=== PATIENT | female | born 1945 | race Caucasian/White ===

== ENCOUNTER 2019-09-13 14:13 | Emergency (ER) | payer MEDICARE ==
[~2019-09-13] VITALS: Ht 157.5 cm; Wt 66.8 kg
[2019-09-13 14:17] VITALS: Ht 157.5 cm; Wt 66.8 kg
[2019-09-13] MEDS ORDERED: BAYER CHEWABLE81 MG (14:30)
[2019-09-13 15:05] VITALS: BP 179/88
[2019-09-13] MEDS ORDERED: TORADOL10 MG PO ×2 (16:14→16:15)
== END 2019-09-13 17:17 | disposition home or self-care (01) ==
LOC: D.ER 14:13
DX: S00.03XA Contusion of scalp, initial encounter (principal); W01.0XXA Fall on same level from slipping, tripping and stumbling without subsequent striking against object, initial encounter; Y93.9 Activity, unspecified; Y92.9 Unspecified place or not applicable; S16.1XXA Strain of muscle, fascia and tendon at neck level, initial encounter; E11.9 Type 2 diabetes mellitus without complications; I10 Essential (primary) hypertension